=== PATIENT | male | born 1995 | race Caucasian/White ===

== ENCOUNTER 2018-06-22 14:14 | Emergency (ER) | payer OTHER ==
[2018-06-22] MEDS ORDERED: LORazepam 2 MG/ML VIAL IM STA (14:53)
[2018-06-22] MEDS ORDERED: LORazepam 0.5 MG TABLET PO STA (15:00)
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
[2018-06-22 17:13] VITALS: BP 126/90
== END 2018-06-22 17:14 | disposition home or self-care (01) ==
LOC: ED 14:14
DX: F41.0 Panic disorder [episodic paroxysmal anxiety] (principal)
CPT/HCPCS: 99283; A9270; J2060